=== PATIENT | male | born 1995 | race African-American/Black ===

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

== ENCOUNTER 2017-03-13 19:09 | Emergency (ER) | payer SELFPAY ==
[~2017-03-13] VITALS: Ht 165.1 cm; Wt 52.2 kg
[~2017-03-13 19:09] MED LIST: CYCL10TA2 PO; NAPR500T PO
[2017-03-13 19:16] VITALS: BP 147/92
[2017-03-13 19:38] LABS: BILIRUBIN,URINE NEGATIVE (NEG); GLUCOSE,URINE >=1000 mg/dL (NEG); NITRITE,URINE NEGATIVE (NEG); PH,URINE 6.5; PROTEIN,URINE NEGATIVE (NEG-TRACE); UROBILINOGEN,URINE 0.2 mg/dL (0.2 mg/dL)
[2017-03-13 19:49] LABS: BACTERIA,URINE 0 /HPF (0-FEW); RBC,URINE 0 /HPF (0-2); SQUAMOUS EPITHELIAL CELL,UR OCC /LPF; WBC,URINE OCC /HPF (0-4)
[2017-03-13] MEDS ORDERED: NYST15CR TP (20:21)
--- NOTE | 2017-03-13 20:22 | PHYS DOC ---
Past Medical History Past Medical History: Diabetes-Type I Past Surgical History: No Surgical History Alcohol Use: None Drug Use: None Adult General Chief Complaint Chief Complaint: SEXUALLY TRANSMITTED DISEASE [facility] HPI Patient is a 22 year old male presents to the emergency department stating that he has a spot on his penis that he is concerned about, he has had these areas for approximately 2-3 days that he has noticed. Patient does state he sexually active with one partner denies any urinary frequency urgency or pain with urination at this time. He denies any penile drainage. He denies any pain in the testicle areas. Denies any fever, chills or any nausea vomiting. Review of Systems Review of Systems Constitutional: Denies fever or chills [] Eyes: Denies change in visual acuity, redness, or eye pain [] HENT: Denies nasal congestion or sore throat [] Respiratory: Denies cough or shortness of breath [] Cardiovascular: No additional information not addressed in HPI [] GI: Denies abdominal pain, nausea, vomiting, bloody stools or diarrhea [] : Denies dysuria or hematuria [] Musculoskeletal: Denies back pain or joint pain [] Integument: Denies rash or skin lesions. Questionable area on his penile shaft that he would like looked at Neurologic: Denies headache, focal weakness or sensory changes [] Endocrine: Denies polyuria or polydipsia [] Allergies Allergies Allergies Coded Allergies Type Severity Reaction Last Updated Verified No Known Drug Allergies 12/20/16 No Physical Exam Physical Exam Constitutional: Well developed, well nourished, no acute distress, non-toxic appearance. [] HENT: Normocephalic, atraumatic, bilateral external ears normal, oropharynx moist, no oral exudates, nose normal. [] Eyes: PERRLA, EOMI, conjunctiva normal, no discharge. [] Neck: Normal range of motion, no tenderness, supple, no stridor. [] Cardiovascular:Heart rate regular rhythm, no murmur [] Lungs & Thorax: Bilateral breath sounds clear to auscultation [] Abdomen: Bowel sounds normal, soft, no tenderness, no masses, no pulsatile masses. [] Skin: Warm, dry, no erythema, no rash. Patient with 2 red spots noted on his penile shaft that does not appear to be raised no pain noted with the reddened areas to drainage or discharge noted. Extremities: No tenderness, no cyanosis, no clubbing, ROM intact, no edema. [] Neurologic: Alert and oriented X 3, normal motor function, normal sensory function, no focal deficits noted. [] Psychologic: Affect normal, judgement normal, mood normal. [] Current Patient Data Vital Signs Vital Signs Date Time Temp Pulse Resp B/P (MAP) Pulse Ox O2 Delivery O2 Flow Rate FiO2 03/13/17 19:16 98.2 104 16 97 Room Air 98.2 Lab Values Laboratory Tests Test 03/13/17 19:25 Urine Collection Type Unknown Urine Color Colorless Urine Clarity Clear Urine pH 6.5 Urine Specific [place] >=1.030 Urine Protein Negative mg/dL (NEG-TRACE) Urine Glucose (UA) >=1000 mg/dL (NEG) Urine Ketones (Stick) Negative mg/dL (NEG) Urine Blood Negative (NEG) Urine Nitrite Negative (NEG) Urine Bilirubin Negative (NEG) Urine Urobilinogen Dipstick 0.2 mg/dL (0.2 mg/dL) Urine Leukocyte Esterase Negative (NEG) Urine RBC 0 /HPF (0-2) Urine WBC Occ /HPF (0-4) Urine Squamous Epithelial Cells Occ /LPF Urine Bacteria 0 /HPF (0-FEW) EKG EKG [] Radiology/Procedures Radiology/Procedures [] Course & Med Decision Making Course & Med Decision Making Pertinent Labs and Imaging studies reviewed. (See chart for details) Urinalysis was negative however patient would like to go ahead and be treated for sexual transmitted infections. Spoke with patient regards to using condoms and safe sex practices. Patient will be provided with Rocephin injection Zithromax and Flagyl. He'll also be provided with nystatin cream to place on his penile shaft area. Patient will be discharged home in stable condition signs and symptoms to return back to emergency prior has been provided. All questions and concerns been answered at the patient's bedside. [] Dragon Disclaimer Dragon Disclaimer This electronic medical record was generated, in whole or in part, using a voice recognition dictation system. Departure Departure Impression: Primary Impression: Concern about sexual dysfunction in male without diagnosis Additional Impression: Marlyn infection Disposition: HOME, SELF-CARE Condition: STABLE Referrals: ROSE CARTER (PCP) Patient Instructions: Sexually Transmitted Disease, [id number], Yeast Infection of the Skin, [id number] Additional Instructions: Activity as tolerated Medication as prescribed. Keep the area clean and dry. Avoid any sexual intercourse for the next 2 weeks. You'll be notified of your culture results by phone if they are positive. Practice safe sex this would include either using condoms or refrain. Follow-up primary care physician in the next 5-7 days. Return back to emergency prior signs symptoms of become worse. Scripts Nystatin (NYSTATIN) 15 Gm Cream..g. 1 XOCHITL TP BID, #30 GM Prov: BONNIE GRANADOS APRN 03/13/17 Problem Qualifiers BONNIE GRANADOS APRN Mar 13, 2017 20:21
[2017-03-13] MEDS ORDERED: metroNIDAZOLE 500 MG TABLET PO ONE (21:00)
[2017-03-13] MEDS ORDERED: AZITHROMYCIN 250 MG TABLET. PO ONE (21:00)
[2017-03-13] MEDS ORDERED: cefTRIAXone IM 250 MG VIAL IM ONE (21:00)
== END 2017-03-13 20:35 | disposition home or self-care (01) ==
LOC: ER 19:09
DX: R37 Sexual dysfunction, unspecified (principal); B37.9 Candidiasis, unspecified; E10.9 Type 1 diabetes mellitus without complications
CPT/HCPCS: 81001; 87491; 87591; 96372; 99284; J0696; Q0144